=== PATIENT | female | born 1935 | race Caucasian/White ===

== ENCOUNTER → 2016-05-22 | Outpatient (CLI) | payer MEDICARE, BC ==
[~2016-05-22] MED LIST: AMIODARONE HCL200 MG PO; ASPIRIN325 MG PO; ASPIRIN81 M1 PO; ATIVAN1 MG PO; CARDIZEM CD120 MG PO; CARDIZEM CD240 MG PO; CIPRO500 MG PO; CORDARONE200 MG PO; DARVOCET N 1001 TAB PO; FLAGYL500 MG PO; FUROSEMIDE20 MG PO; KLOR-CON 1010 MEQ PO; LISINOPRIL HCTZ1 TA1 PO; LISINOPRIL2.5 MG PO; LOPRESSOR50 MG PO; Lovenox40 MG/0.4 SC; PRAVACHOL40 MG PO; PRINZIDE 25 MG-1 TAB PO; PROTONIX TR40 MG PO; SEPTRA DS 800 M1 TAB PO; SYNTHROID,LEVO50 MCG PO; SYNTHROID0.075 MG PO; ZESTRIL,PRINIVI20 MG PO
[2016-05-22 09:40] LABS: BASO # 0.1 10*3/uL (0.0-0.1); BASO % 1.3 % (0.0-1.0); EOS # 0.8 10*3/uL (0.0-0.4); EOS % 7.5 % (1.0-4.0); HEMATOCRIT 38.7 % (37.0-47.0); HEMOGLOBIN 12.8 g/dl (12.0-16.0); LYMPH # 2.8 10*3/uL (1.3-4.4); LYMPH % 27.5 % (27.0-41.0); MEAN CELL VOLUME 102.4 fl (81.0-99.0); MEAN CORPUSCULAR HGB 33.9 pg (27.0-31.0); MEAN CORPUSCULAR HGB CONC 33.1 g/dl (33.0-37.0); MEAN PLATELET VOLUME 10.8 fl (9.6-12.3); MONO # 1.1 10*3/uL (0.1-1.0); MONO % 10.8 % (3.0-9.0); NEUT # 5.3 10*3/uL (2.3-7.9); NEUT % 52.5 % (47.0-73.0); PLATELET COUNT AUTOMATED 242 10*3/uL (130-400); RED BLOOD COUNT 3.78 10*6/uL (4.10-5.10); RED CELL DISTRI WIDTH 12.7 % (0-14.5); WHITE BLOOD COUNT 10.2 10*3/uL (4.8-10.8)
[2016-05-22 10:15] LABS: POTASSIUM 3.6 mmol/L (3.5-5.1); THYROID STIM HORMONE (HS) 0.457 uIU/ml (0.358-4.75)
== END | disposition home or self-care (01) ==
LOC: LAB 03:00
PROVIDERS: Internal Medicine Cardiovascular Disease
DX: R53.1 Weakness (principal)

== ENCOUNTER → 2016-08-05 | Outpatient (CLI) | payer MEDICARE, BC | END | disposition home or self-care (01) | LOC: CARD 01:50 | DX: I48.91 Unspecified atrial fibrillation (principal); I34.0 Nonrheumatic mitral (valve) insufficiency; I07.1 Rheumatic tricuspid insufficiency ==

== ENCOUNTER → 2018-06-12 | Outpatient (CLI) | payer MEDICARE, BC | END | disposition home or self-care (01) | LOC: CARD 02:19 | DX: I08.1 Rheumatic disorders of both mitral and tricuspid valves (principal); I11.0 Hypertensive heart disease with heart failure; I50.33 Acute on chronic diastolic (congestive) heart failure; R42 Dizziness and giddiness; I31.3 Pericardial effusion (noninflammatory) ==

== ENCOUNTER → 2018-07-29 | Outpatient (CLI) | payer MEDICARE, BC ==
[2018-07-29 10:10] LABS: CREATININE 1.55 mg/dL (0.55-1.02); POTASSIUM 4.5 mmol/L (3.5-5.1)
== END | disposition home or self-care (01) ==
LOC: LAB 08:58
DX: I11.0 Hypertensive heart disease with heart failure (principal); I50.33 Acute on chronic diastolic (congestive) heart failure

== ENCOUNTER → 2018-09-15 | Outpatient (CLI) | payer MEDICARE, BC | END | disposition home or self-care (01) | LOC: CT 09-10 15:00 | DX: J84.10 Pulmonary fibrosis, unspecified (principal); I25.10 Atherosclerotic heart disease of native coronary artery without angina pectoris; K44.9 Diaphragmatic hernia without obstruction or gangrene; R42 Dizziness and giddiness; Z95.0 Presence of cardiac pacemaker ==

== ENCOUNTER → 2019-05-25 | Outpatient (CLI) | payer MEDICARE, BC ==
[2019-05-25 10:23] LABS: FREE T4 1.12 ng/dl (0.76-1.46)
== END | disposition home or self-care (01) ==
LOC: LAB 00:17 → CARD 08:30 → LAB 08:30
PROVIDERS: Nurse Practitioner Family
DX: I08.1 Rheumatic disorders of both mitral and tricuspid valves (principal); E05.90 Thyrotoxicosis, unspecified without thyrotoxic crisis or storm; I47.2 Ventricular tachycardia

== ENCOUNTER → 2019-10-08 | Outpatient (CLI) | payer MEDICARE, BC ==
[~2019-10-08] MED LIST changes: +ATIVAN0.5 MG PO; +ELIQUIS2.5 M1 PO; +LASIX20 MG PO; +METOPROLOL SUCC50 M2 PO; -SYNTHROID0.075 MG PO; +Synthroid,Lev100 MCG PO; +VITAMIN D3100 MCG PO
--- NOTE | 2019-10-08 10:15 | NUR ---
INFORMED CONSENT OBTAINED FOR LEXISCAN NUCLEAR STRESS TEST WITH DR. CANTRELL. RESTING EKG PACED WITH A RESTING HR OF 75 WITH BP OF 150/78. LUNGS CLEAR WITH SPO2 OF 100% ON ROOM AIR. PT COMPLETED A 1:00 LEXISCAN PROTOCOL RECEIVING LEXISCAN 0.4 MG IV OVER 10 SECONDS. HAD NO CHEST PAIN BUT DID C/O FEELING SHORTNESS OF BREATH THAT SUBSIDED IN RECOVERY. HAD INTERMITTENT NSR THAT WAS NONDIAGNOSTIC. HAD A PEAK HR OF 96 WITH BP 108/58. LAST RECOVERY HR OF 91 WITH BP OF 124/62. AWAITING SCANNING IN STABLE CONDITION.
== END | disposition home or self-care (01) ==
LOC: CARD 04:55
DX: I10 Essential (primary) hypertension (principal); R06.02 Shortness of breath; R53.81 Other malaise

== ENCOUNTER → 2019-10-12 | Outpatient (CLI) | payer MEDICARE, BC | END | disposition home or self-care (01) | LOC: CT 08:38 | DX: I10 Essential (primary) hypertension (principal); R53.83 Other fatigue; E03.9 Hypothyroidism, unspecified; R42 Dizziness and giddiness; Z95.0 Presence of cardiac pacemaker ==

== ENCOUNTER → 2020-01-07 | Outpatient (CLI) | payer MEDICARE, BC | END | disposition home or self-care (01) | LOC: RAD 00:54 | PROVIDERS: ATTEND Physician Assistant | DX: R06.02 Shortness of breath (principal) ==

== ENCOUNTER → 2021-07-28 | Outpatient (CLI) | payer MEDICARE, BC | END | disposition home or self-care (01) | LOC: CARD 08:09 | PROVIDERS: ATTEND Internal Medicine Cardiovascular Disease | DX: I48.19 Other persistent atrial fibrillation (principal) ==